=== PATIENT | male | born 2000 ===

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

== ENCOUNTER 2022-02-13 19:07 | Emergency (ER) | payer MEDICAID, SELFPAY ==
[2022-02-13] MEDS ORDERED: Proparacaine 0.5% Opth 15 ML BOT ONE (20:16)
[2022-02-13] MEDS ORDERED: Fluorescein Opthalmic Strip ONE (20:16)
[2022-02-13] MEDS ORDERED: HYDROcodone/Acetaminophen 5/325 mg Tablet ONE (21:54)
[2022-02-13] MEDS ORDERED: Boostrix 0.5 ML (Tdap) VIAL ONE (21:54)
== END 2022-02-13 22:25 | disposition home or self-care (01) ==
LOC: ERS 19:07
DX: H44.721 Retained (nonmagnetic) (old) foreign body in iris or ciliary body, right eye (principal)
CPT/HCPCS: 90715; 99283

== ENCOUNTER 2023-08-18 12:55 | Emergency (ER) | payer MEDICAID, SELFPAY | END 2023-08-18 15:08 | disposition home or self-care (01) | LOC: ERS 12:55 | DX: E25.0 Congenital adrenogenital disorders associated with enzyme deficiency (principal); Z76.0 Encounter for issue of repeat prescription; F17.290 Nicotine dependence, other tobacco product, uncomplicated | CPT/HCPCS: 99281 ==